=== PATIENT | male | born 1990 | race Caucasian/White ===

== ENCOUNTER 2019-05-08 09:53 | Emergency (ER) | payer OTHER ==
[~2019-05-08] VITALS: Ht 185.4 cm; Wt 104.5 kg
[2019-05-08 09:56] VITALS: BP 133/83; TEMP 97.6
[2019-05-08 10:37] LABS: COLLECTION METHOD CLEAN CATCH
[2019-05-08 10:42] LABS: MUCOUS Present /lpf; PH 5 (5-8); SQUAMOUS EPITHELIAL 0-2 /hpf; URINE APPEARANCE Clear; URINE BACTERIA Rare /hpf; URINE BILIRUBIN Negative (NEGATIVE); URINE BLOOD Negative (NEGATIVE); URINE COLOR Yellow; URINE GLUCOSE Negative (NEGATIVE); URINE KETONE Negative (NEGATIVE); URINE LEUKOCYTE ESTERASE Negative (NEGATIVE); URINE NITRATE Negative (NEGATIVE); URINE PROTEIN(semi-quant) Negative (NEGATIVE); URINE RBC 0-2 /hpf; URINE UROBILINOGEN Negative (NEGATIVE)
[2019-05-08] MEDS ORDERED: IBU800 M1 PO (13:10)
[2019-05-08 13:19] VITALS: PULSE 100
== END 2019-05-08 13:19 | disposition home or self-care (01) ==
LOC: COL.ER 09:53
PROVIDERS: Nurse Practitioner Primary Care
DX: S76.211A Strain of adductor muscle, fascia and tendon of right thigh, initial encounter (principal); J45.909 Unspecified asthma, uncomplicated

== ENCOUNTER → 2021-08-05 | Outpatient (CLI) | payer BC ==
[~2021-08-05] MED LIST: IBU800 M1 PO
== END ==
LOC: ZCOL.LAB 18:07
DX: R52 Pain, unspecified (principal)